=== PATIENT | female | born 1950 | race Caucasian/White ===

== ENCOUNTER 2020-06-02 06:16 | Day surgery (SDC) | payer MEDICARE, BC ==
[2020-05-26 12:20] LABS: BASOPHILS # (AUTO) 0.1 X10'3 (0-0.2); BASOPHILS % (AUTO) 1.2 % (0-1); EOSINOPHILS # (AUTO) 0.1 X10'3 (0-0.9); EOSINOPHILS % (AUTO) 2.3 % (0-6); LYMPHOCYTES # (AUTO) 0.8 X10'3 (1.1-4.8); LYMPHOCYTES % (AUTO) 15.9 % (21-51); MEAN CORPUSCULAR HEMOGLOBIN 25.1 PG (27.0-31.0); MEAN CORPUSCULAR HGB CONC 32.1 g/dL (33.0-36.5); MEAN CORPUSCULAR VOLUME 78.2 FL (78-98); MEAN PLATELET VOLUME 7.8 FL (7.4-10.4); MONOCYTES # (AUTO) 0.5 X10'3 (0-0.9); MONOCYTES % (AUTO) 9.8 % (2-12); NEUTROPHILS # (AUTO) 3.4 X10'3 (1.8-7.7); NEUTROPHILS % (AUTO) 70.8 % (42-75); PRE OP HEMATOCRIT 37.7 % (35.0-45.0); PRE OP HEMOGLOBIN 12.1 g/dL (12.0-16.0); PRE OP PLATELET COUNT 253 X10'3 (140-440); RED BLOOD COUNT 4.83 X10'6 (4.20-5.60); RED CELL DISTRIBUTION WIDTH 16.8 % (11.5-14.5)
[2020-05-26 12:43] LABS: ALBUMIN/GLOBULIN RATIO 1.3 (1.1-1.5); ALKALINE PHOSPHATASE 75 IU/L (46-116); BLOOD UREA NITROGEN 25 MG/DL (7-18); BUN/CREATININE RATIO 34.2 (6.6-38.0); CHLORIDE 104 MMOL/L (99-107); CREATININE 0.73 MG/DL (0.40-0.90); PRE OP ALT 29 U/L (30-65); PRE OP ANION GAP 9 (8-16); PRE OP AST 28 U/L (10-37); PRE OP BILIRUB, TOTAL 0.5 MG/DL (0.0-1.0); PRE OP GLUCOSE 95 MG/DL (70-104); PRE OP SODIUM 140 MMOL/L (135-145); TOTAL CARBON DIOXIDE 26.6 MMOL/L (24-32); TOTAL PROTEIN 7.1 G/DL (6.4-8.2); eGFR 78 ML/MIN
[~2020-06-02] VITALS: Ht 165.1 cm; Wt 89.1 kg
[2020-06-02] VITALS (25 sets, daily range): BP systolic 102–132; BP diastolic 45–70
[~2020-06-02 06:16] MED LIST: ASPI81TA52 PO; CALC-336 PO; CHOL10006 PO; CYAN25006 SL; DILT120T4 PO; ESOM40CA PO; ESTR0.5T2 PO; ESZO2TAB PO; HYDR200T84 PO; LEVO150T PO; MELO15TA13 PO; MULT-1085 PO; ceFAZolin 2gm in dextrose, iso 50 ML IV ONE; famotidine 20mg tablet PO ONE; ringers solution, lacted 1,000 ML IV SCH
[2020-06-02] MEDS ORDERED: bacitracin 15gm ointment TP ONE (08:11)
[2020-06-02] MEDS ORDERED: MIDAZolam 5mg/5ml vial ONE (09:06)
[2020-06-02] MEDS ORDERED: fentaNYL/PF 50MCG/1 ML 2ML syringe ONE ×2 (09:06→11:58)
[2020-06-02] MEDS ORDERED: ROPIVAcaine 0.5% (5mg/ml) 30ml vial ONE (09:10)
[2020-06-02] MEDS ORDERED: meperidine/PF 25mg/ml syringe IV PRN ×2 (10:50)
[2020-06-02] MEDS ORDERED: ringers solution, lacted 1,000 ML IV SCH (10:50)
[2020-06-02] MEDS ORDERED: proCHLORperazine 10 MG/2 ml inj IV PRN (10:50)
[2020-06-02] MEDS ORDERED: morphine 2 MG/ML inj. syringe IV PRN (10:50)
[2020-06-02] MEDS ORDERED: ondansetron/PF 4mg/2ml inj IV PRN (10:50)
[2020-06-02] MEDS ORDERED: ROPIVAcaine 0.2% (10 MG/5 ML) BOLUS INJECTION POPLITEAL PRN (10:50)
[2020-06-02] MEDS ORDERED: ROPIVAcaine 0.2%/PF PUMP/bolus 550 ML POPLITEAL SCH (12:15)
[2020-06-02] MEDS ORDERED: ondansetron/PF 4mg/2ml inj ONE (13:08)
[2020-06-02] MEDS ORDERED: dexamethasone sod phosphate 4mg/ml inj. ONE (13:08)
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
[2020-06-02] MEDS: meperidine/PF 25mg/ml syringe IV PRN ×3 (14:02→14:40)
--- NOTE | 2020-06-02 14:15 | NUR ---
DR DE LA ROSA CALLED REGARDING CONTINUED BURNING PAIN UNRELIEVED BY IV PAIN MEDS, ATTEMPTED TO REPOSITION IN MULTIPLE WAYS, ATTACHED ON-Q PUMP AND GAVE FIRST BOLUS DOSE. WILL CONTINUE WITH PAIN MEDICATIONS
[2020-06-02] MEDS: morphine 4 MG/ML inj SYRINge IV PRN ×2 (14:52→16:42)
--- NOTE | 2020-06-02 15:00 | NUR ---
DR ROJAS IN TO SEE PT, DISCUSSED PAIN MEDS ALREADY GIVEN AND CONTINUED C/O BURNING PAIN 10/10 IN KNEE AND GROIN/THIGH AREA. TTO
--- NOTE | 2020-06-02 15:01 | NUR ---
AREA OF DISCOMFORT IS NOTED TO BE AT THE [place] SITE AND BELOW, DR DE LA ROSA AWARE OF THIS, DISCOMFORT MORE COMMON WITH LONGER SURGERY, GIVEN ORDER FOR TORODOL FOR PAIN DEMEROL AND MORPHINE HAVE NOT WORKED.
[2020-06-02] MEDS ORDERED: ketorolac tromethamine 15mg/ml inj. IV ONE (15:10)
[2020-06-02] MEDS ORDERED: acetaminophen 1,000mg/100ml IV 100 ML IV ONE (15:30)
--- NOTE | 2020-06-02 15:30 | NUR ---
PT PAIN STARTING TO COME DOWN, PT STATES 10/14 BUT APPEARS MUCH CALMER, ABLE SIT UP AND TAKE ICE CHIPS AND HOLD CONVERSATION.
--- NOTE | 2020-06-02 16:20 | NUR ---
STRAND IN TO SPEAK WITH PT REGARDING REMAINING DISCOMFORT, SUGGESTED OTC VOLTAREN TOPICALLY TO HELP WITH DISCOMFORT FROM [place], PT MORE COMFORTABLE NOW, DISCUSSED GETTING DRESSED WITH PT, BUT PT WANTED TO WAIT A BIT LONGER. EATING ICE TO HELP WITH SORE THROAT
--- NOTE | 2020-06-02 17:30 | NUR ---
PT MOVING WELL, PAIN STILL STATED AT 10/14 BUT TOLERABLE, PT ABLE TO GET DRESSED WITH MINIMAL HELP, WAITING FOR
--- NOTE | 2020-06-02 18:00 | NUR ---
PATIENT A&OX4, PAIN TOLERABLE FOR PT-WILL BE TAKING ULTRAM AT HOME ALONG WITH ON-Q PUMP, PT FULLY EDUCATED REGARDING USE OF ON-Q PUMP SET AT 2ML CURRENTLY AND ALSO GIVEN HANDOUT FOR D/C OF CATHETER WHEN TIME-ALL QUESTIONS ANSWERED, V/S WNL, NEUROVASCULAR CHECKS INTACT-STILL DECREASED SENSATION TO RIGHT FOOT D/T NERVE BLOCK, PINK AND WARM TOES, 20G PIV D/C WITH NO COMPLICATIONS OBSERVED, I HAVE REVIEWED D/C INSTRUCTIONS WITH PATIENT AND FAMILY AND THEY HAVE VERBALIZED UNDERSTANDING. PATIENT D/C HOME WITH ALL BELONGINGS AND FAMILY GAVE TRANSPORT HOME.
[2020-06-02] MEDS ORDERED: acetaminophen 1,000mg/100ml IV 100 ML IV SCH (20:00)
== END 2020-06-02 18:00 | disposition home or self-care (01) ==
LOC: PAS 06:16
PROVIDERS: ATTEND Podiatrist Foot & Ankle Surgery
DX: M21.6X1 Other acquired deformities of right foot (principal); M21.41 Flat foot [pes planus] (acquired), right foot; M19.071 Primary osteoarthritis, right ankle and foot; G89.18 Other acute postprocedural pain
CPT/HCPCS: 27687; 28715; 28730; 36415; 64446; 64448; 73620; 76000; 76937; 80053; 82948; 85025; 87635; 93005; A6223; C1713; J1100; J1885; J2175; J2250; J2270; J2405; J2795; J3010; J7120; A4618; A6449; A7000

== ENCOUNTER 2021-07-06 11:19 | Emergency (ER) | payer MEDICARE, BC ==
[~2021-07-06] VITALS: Ht 162.6 cm; Wt 84.0 kg
[~2021-07-06 11:19] MED LIST changes: -ceFAZolin 2gm in dextrose, iso 50 ML IV ONE; -famotidine 20mg tablet PO ONE; -ringers solution, lacted 1,000 ML IV SCH
[2021-07-06 12:43] LABS: EOSINOPHILS # (AUTO) 0.2 X10'3 (0-0.9); EOSINOPHILS % (AUTO) 3.6 % (0-6); HEMATOCRIT 41.4 % (35.0-45.0); HEMOGLOBIN 13.5 g/dl (12.0-16.0); LYMPHOCYTES # (AUTO) 0.8 X10'3 (1.1-4.8); MEAN CORPUSCULAR HEMOGLOBIN 27.6 PG (27.0-31.0); MEAN CORPUSCULAR HGB CONC 32.5 g/dL (33.0-36.5); MEAN CORPUSCULAR VOLUME 84.7 FL (78-98); MEAN PLATELET VOLUME 7.9 FL (7.4-10.4); MONOCYTES # (AUTO) 0.5 X10'3 (0-0.9); NEUTROPHILS # (AUTO) 2.7 X10'3 (1.8-7.7); NEUTROPHILS % (AUTO) 64.4 % (42-75); PLATELET COUNT 218 X10'3 (140-440); RED BLOOD COUNT 4.88 X10'6 (4.20-5.60); RED CELL DISTRIBUTION WIDTH 22.3 % (11.5-14.5); WHITE BLOOD COUNT 4.2 X10'3 (4.5-11.0)
[2021-07-06 13:07] LABS: ANISOCYTOSIS 3+; MICROCYTOSIS 1+; PLATELET ESTIMATE NORMAL
[2021-07-06 13:10] LABS: ALANINE AMINOTRANSFERASE 27 U/L (12-78); ALBUMIN 4.1 G/DL (3.4-5.0); ALBUMIN/GLOBULIN RATIO 1.5 (1.1-1.5); ALKALINE PHOSPHATASE 77 IU/L (46-116); ANION GAP 7 (8-16); ASPARTATE AMINO TRANSFERASE 32 U/L (10-37); BILIRUBIN,TOTAL 0.4 MG/DL (0.1-1.0); BLOOD UREA NITROGEN 24 MG/DL (7-18); BUN/CREATININE RATIO 45.3 (6.6-38.0); CHLORIDE 108 MMOL/L (99-107); CREATININE 0.53 MG/DL (0.40-0.90); GLUCOSE 92 MG/DL (70-104); POTASSIUM 4.1 MMOL/L (3.5-5.1); SODIUM 143 MMOL/L (135-145); TOTAL CARBON DIOXIDE 27.8 MMOL/L (24-32); TOTAL PROTEIN 6.9 G/DL (6.4-8.2); eGFR > 90 ML/MIN
[2021-07-06 16:49] VITALS: BP 120/70
== END 2021-07-06 17:31 | disposition home or self-care (01) ==
LOC: ER 11:20
DX: R94.31 Abnormal electrocardiogram [ECG] [EKG] (principal); I48.91 Unspecified atrial fibrillation; Z88.2 Allergy status to sulfonamides; Z88.1 Allergy status to other antibiotic agents; Z88.8 Allergy status to other drugs, medicaments and biological substances; Z79.82 Long term (current) use of aspirin; Z79.899 Other long term (current) drug therapy
CPT/HCPCS: 36415; 71045; 80053; 83880; 84484; 85008; 85025; 93005; 99285

== ENCOUNTER 2021-08-28 10:46 | Outpatient (CLI) | payer MEDICARE, BC | END 2021-08-28 23:59 | disposition home or self-care (01) | LOC: VAS 10:46 | PROVIDERS: ATTEND Internal Medicine Cardiovascular Disease | DX: M79.605 Pain in left leg (principal) | CPT/HCPCS: 93971 ==

== ENCOUNTER 2021-11-16 06:18 | Emergency (ER) | payer MEDICARE, BC ==
[~2021-11-16] VITALS: Ht 165.1 cm; Wt 84.1 kg
[2021-11-16] MEDS ORDERED: BEBTELOVIMAB 175 MG/2 ML VIAL IV ONE (07:45)
[2021-11-16] MEDS ORDERED: acetaminophen 325mg tablet PO ONE (08:00)
--- NOTE | 2021-11-16 09:00 | NUR ---
Pt denies pain or discomfort at this time.
[2021-11-16 09:42] VITALS: BP 104/61
== END 2021-11-16 09:45 | disposition home or self-care (01) ==
LOC: ER 06:18
DX: U07.1 COVID-19 (principal); Z88.1 Allergy status to other antibiotic agents; Z88.2 Allergy status to sulfonamides; Z88.5 Allergy status to narcotic agent; Z91.041 Radiographic dye allergy status
CPT/HCPCS: 87502; 87503; 87811; 99283; M0222; Q0222

== ENCOUNTER 2022-02-22 05:15 | Day surgery (SDC) | payer MEDICARE, BC ==
[2022-02-14 14:36] LABS: BASOPHILS # (AUTO) 0.1 X10'3 (0-0.2); BASOPHILS % (AUTO) 1.3 % (0-1); EOSINOPHILS # (AUTO) 0.1 X10'3 (0-0.9); EOSINOPHILS % (AUTO) 2.3 % (0-6); LYMPHOCYTES % (AUTO) 18.4 % (21-51); MEAN CORPUSCULAR HEMOGLOBIN 30.1 PG (27.0-31.0); MEAN CORPUSCULAR HGB CONC 33.2 g/dL (33.0-36.5); MEAN CORPUSCULAR VOLUME 90.8 FL (78-98); MEAN PLATELET VOLUME 7.7 FL (7.4-10.4); MONOCYTES # (AUTO) 0.5 X10'3 (0-0.9); MONOCYTES % (AUTO) 9.1 % (2-12); NEUTROPHILS # (AUTO) 3.9 X10'3 (1.8-7.7); NEUTROPHILS % (AUTO) 68.9 % (42-75); PRE OP HEMATOCRIT 44.6 % (35.0-45.0); PRE OP HEMOGLOBIN 14.8 g/dL (12.0-16.0); PRE OP PLATELET COUNT 289 X10'3 (140-440); RED BLOOD COUNT 4.91 X10'6 (4.20-5.60); RED CELL DISTRIBUTION WIDTH 14.6 % (11.5-14.5)
[2022-02-14 14:38] LABS: CLARITY,URINE CLEAR (Clear); COLOR,URINE YELLOW (Yellow); GLUCOSE, URINE NEGATIVE (Neg); KETONES,URINE NEGATIVE (Neg); LEUKOCYTE ESTERASE ,URINE NEGATIVE (Neg); NITRITES, URINE NEGATIVE (Neg); OCCULT BLOOD,URINE NEGATIVE (Neg); PH,URINE 5.5 (4.8-8.0); PROTEIN,URINE NEGATIVE (Neg); UROBILINOGEN,URINE 0.2 E.U/dL (0.2-1.0)
[2022-02-14 14:47] LABS: UA COLLECTION TYPE CLN CATCH MIDSTREAM
[2022-02-14 14:52] LABS: ALBUMIN 3.8 G/DL (3.4-5.0); ALBUMIN/GLOBULIN RATIO 1.2 (1.1-1.5); ALKALINE PHOSPHATASE 91 IU/L (46-116); BLOOD UREA NITROGEN 22 MG/DL (7-18); CALCIUM 9.2 MG/DL (8.5-10.1); CHLORIDE 104 MMOL/L (99-107); CREATININE 0.71 MG/DL (0.40-0.90); PRE OP ALT 33 U/L (30-65); PRE OP ANION GAP 11 (8-16); PRE OP AST 26 U/L (10-37); PRE OP BILIRUB, TOTAL 0.6 MG/DL (0.0-1.0); PRE OP GLUCOSE 137 MG/DL (70-104); PRE OP POTASSIUM 3.5 MMOL/L (3.4-5.1); PRE OP SODIUM 141 MMOL/L (135-145); TOTAL CARBON DIOXIDE 26.5 MMOL/L (24-32); eGFR 81 ML/MIN
[~2022-02-22] VITALS: Ht 162.6 cm; Wt 82.9 kg
[2022-02-22] VITALS (14 sets, daily range): BP systolic 104–134; BP diastolic 54–73
[~2022-02-22 05:15] MED LIST changes: +ALBU8.5H17 INH; -ASPI81TA52 PO; +BACI1TAB2 PO; +BIOT5000 PO; -CHOL10006 PO; -CYAN25006 SL; +FERR-39 PO; +FIBER WELL PO; +GAS X PO; +LORA-641 PO; -MELO15TA13 PO; +RIVA20TA PO; +TRAM50TA2 PO; +VALA10002 PO; +ringers solution, lacted 1,000 ML IV SCH
[2022-02-22] MEDS ORDERED: famotidine 20mg tablet PO ONE (05:30)
[2022-02-22] MEDS ORDERED: ceFAZolin inj. 2,000 MG in dextrose 5%-water 100 ML IV ONE (05:30)
[2022-02-22] MEDS ORDERED: fentaNYL/PF 50MCG/1 ML 2ML syringe ONE (07:12)
[2022-02-22] MEDS ORDERED: midazolam 1 mg/ML 2ml injection ONE (07:13)
[2022-02-22] MEDS ORDERED: dexamethasone sod phosphate 4mg/ml inj. ONE (07:17)
[2022-02-22] MEDS ORDERED: ROPIVAcaine 0.5% (5mg/ml) 30ml vial ONE ×2 (07:17)
[2022-02-22] MEDS ORDERED: labetalol 20mg/4ml (5mg/ml) syringe IV PRN (07:30)
[2022-02-22] MEDS ORDERED: meperidine/PF 25mg/ml syringe IV PRN ×2 (07:30)
[2022-02-22] MEDS ORDERED: hydrALAZINE 20mg/ml inj. IV PRN (07:30)
[2022-02-22] MEDS ORDERED: ringers solution, lacted 1,000 ML IV SCH (07:30)
[2022-02-22] MEDS ORDERED: ondansetron/PF 4mg/2ml inj IV PRN (07:30)
[2022-02-22] MEDS ORDERED: fentaNYL/PF 50MCG/1 ML 2ML syringe IV PRN ×2 (07:30)
[2022-02-22] MEDS ORDERED: bacitracin 15gm ointment TP ONE (07:55)
[2022-02-22] MEDS ORDERED: BUPIVAcaine/PF 2.5 mg/ml (0.25%) 30ml vial ONE (07:55)
[2022-02-22] MEDS ORDERED: ondansetron/PF 4mg/2ml inj ONE (08:49)
[2022-02-22] MEDS ORDERED: acetaminophen 1,000mg/100ml IV 100 ML IV ONE (08:49)
[2022-02-22] MEDS ORDERED: triamcinolone acetonide 40mg/ml inj ONE (09:05)
[2022-02-22] MEDS ORDERED: BUPIVAcaine 0.25% w/Epi /PF 30ml vial IJ ONE (09:23)
[2022-02-22] MEDS ORDERED: triamcinolone acetonide 40mg/ml inj IM ONE (09:23)
--- NOTE | 2022-02-22 10:22 | NUR ---
Received from OR via [facility], accompanied by Anesthesiologist DR EDWARD and report given by Anesthesiolgist. PT PRESENT WITH 20G LEFT FOREARM, RIGHT FOOT DRESSING WITH BOOT SONJA CARDOSO. Addendum: 02/22/22 at 1040 by Diana Shaw RN, RN Amended: Links added.
[2022-02-22] MEDS ORDERED: traMADol 50MG tablet PO ONE (10:50)
--- NOTE | 2022-02-22 12:22 | NUR ---
I HAVE REVIEWED D/C INSTRUCTIONS WITH PATIENT AND THEY HAVE VERBALIZED UNDERSTANDING OF INSTRUCTIONS. PT WAS GIVEN A LEG ELEVATOR FOAM BLUE FOR LEG COMFORT. PATIENT D/C HOME WITH ALL BELONGINGS AND FAMILY GAVE TRANSPORT Addendum: 02/22/22 at 1255 by Diana Shaw RN, RN Amended: Links added.
== END 2022-02-22 12:22 | disposition home or self-care (01) ==
LOC: PAS 05:15
PROVIDERS: ATTEND Podiatrist Foot & Ankle Surgery
DX: M19.071 Primary osteoarthritis, right ankle and foot (principal); T84.84XA Pain due to internal orthopedic prosthetic devices, implants and grafts, initial encounter; M76.71 Peroneal tendinitis, right leg; M21.41 Flat foot [pes planus] (acquired), right foot; Z88.5 Allergy status to narcotic agent; Z88.1 Allergy status to other antibiotic agents; Z88.2 Allergy status to sulfonamides; Z98.890 Other specified postprocedural states; Z96.611 Presence of right artificial shoulder joint; Z87.891 Personal history of nicotine dependence; Z79.891 Long term (current) use of opiate analgesic; Y83.8 Other surgical procedures as the cause of abnormal reaction of the patient, or of later complication, without mention of misadventure at the time of the procedure; Z88.8 Allergy status to other drugs, medicaments and biological substances; K21.9 Gastro-esophageal reflux disease without esophagitis; Z90.49 Acquired absence of other specified parts of digestive tract; Z90.710 Acquired absence of both cervix and uterus; Z79.899 Other long term (current) drug therapy; G89.18 Other acute postprocedural pain
CPT/HCPCS: 20680; 29895; 36415; 64445; 64447; 73620; 76942; 80053; 81003; 82948; 85025; A6222; C1713; J0131; J0690; J1100; J1644; J2250; J2405; J2795; J3010; J3301; J3490; J7060; J7120; S0020; Z7506; Z7508; Z7512; 76000; A4215; A4615; A4618; A6449; A7000

== ENCOUNTER 2022-07-23 14:37 | Outpatient (CLI) | payer MEDICARE, BC ==
[~2022-07-23 14:37] MED LIST changes: -BACI1TAB2 PO; -ringers solution, lacted 1,000 ML IV SCH
== END 2022-07-23 23:59 | disposition home or self-care (01) ==
LOC: CARD DIAG 14:37
PROVIDERS: ATTEND Internal Medicine Cardiovascular Disease
DX: I08.3 Combined rheumatic disorders of mitral, aortic and tricuspid valves (principal)
CPT/HCPCS: 93306

== ENCOUNTER 2025-03-31 10:20 | Emergency (ER) | payer MEDICARE, BC ==
[~2025-03-31] VITALS: Ht 162.6 cm; Wt 31.8 kg
[~2025-03-31 10:20] MED LIST changes: +HYDR200T73 PO; -HYDR200T84 PO
[2025-03-31 10:29] VITALS: TEMP 97.3
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
[2025-03-31] MEDS: ondansetron 4mg rapidly disintigrating tab PO ONE (11:36)
--- NOTE | 2025-03-31 11:57 | RADIOLOGY REPORT ---
CLINICAL HISTORY: left hip pain TECHNIQUE: 2 views of the left hip were obtained. COMPARISON: None FINDINGS: No acute fracture or dislocation is seen. There are no significant degenerative changes. No significant soft tissue abnormality is seen. IMPRESSION: NO ACUTE RADIOGRAPHIC ABNORMALITY OF THE LEFT HIP.
[2025-03-31] MEDS ORDERED: BACI1PAC7 TOP (13:01)
[2025-03-31] MEDS ORDERED: ONDA-243 PO (13:01)
[2025-03-31 13:15] VITALS: BP 100/45; PULSE 60; RESP 14; O2SAT 95
== END 2025-03-31 13:15 | disposition home or self-care (01) ==
LOC: ER 10:21
DX: S06.0XAA Concussion with loss of consciousness status unknown, initial encounter (principal); I48.91 Unspecified atrial fibrillation; Z88.2 Allergy status to sulfonamides; Z88.1 Allergy status to other antibiotic agents; Z88.5 Allergy status to narcotic agent; Z79.899 Other long term (current) drug therapy; W18.39XA Other fall on same level, initial encounter; Y93.89 Activity, other specified; Y92.89 Other specified places as the place of occurrence of the external cause; Y99.8 Other external cause status
CPT/HCPCS: 70450; 73502; 99284; Q0163